=== PATIENT | female | born 1960 | race Caucasian/White ===

== ENCOUNTER 2020-06-23 08:12 | Outpatient (CLI) | payer BC, SELFPAY ==
--- NOTE | ~2020-06-23 | MM_ITS ---
EXAMINATION: MM screening [facility] BI w madiha HISTORY: Screening mammogram TECHNIQUE: Craniocaudal and mediolateral oblique 3-D tomosynthesis images were obtained and synthetic 2-D images were generated. CAD analysis was submitted and interpreted. COMPARISON: 05/27/2019, 05/23/2018, 05/08/2017 and lateral digital screening mammogram examinations BREAST PARENCHYMAL COMPOSITION: There are scattered areas of fibroglandular density. FINDINGS: There is no evidence of suspicious mass, calcification, or architectural distortion to sugg est malignancy in either breast. There has been no suspicious interval change. IMPRESSION: 1. No mammographic evidence of malignancy. 2. Recommend routine screening mammography in one year. BI-RADS Category 1: Negative Reviewed, dictated and finalized at location A. 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
== END 2020-06-23 08:13 | disposition home or self-care (01) ==
LOC: ANHIMG 08:17
PROVIDERS: Visit Provider Family Medicine
DX: Z12.31 Encounter for screening mammogram for malignant neoplasm of breast (principal)
CPT/HCPCS: 77063; 77067

== ENCOUNTER → 2020-12-28 00:17 | Outpatient (CLI) | payer BC, SELFPAY ==
[2020-12-28 21:52] LABS: SARS-CoV-2 RNA PCR Negative
== END ==
PROVIDERS: Visit Provider Internal Medicine Gastroenterology
DX: Z01.812 Encounter for preprocedural laboratory examination (principal); Z20.822 Contact with and (suspected) exposure to COVID-19
CPT/HCPCS: C9803; U0003; U0005

== ENCOUNTER 2020-12-31 02:33 | Day surgery (SDC) | payer BC, SELFPAY ==
[2020-12-23 09:25] VITALS: BMI 37.2
[2020-12-31 07:00] VITALS: BP 141/80; PULSE 89; RESP 18; TEMP 36.5; O2SAT 96; BMI 37.5
[2020-12-31] MEDS: LACTATED RINGERS 1,000 ML 150 ML IV CONT (07:10)
--- NOTE | 2020-12-31 07:17 | P.HP_ITS ---
History of Present Illness History of Present Illness Consent: Risks, benefits, and alternatives have been discussed and questions answered. Patient agrees to proceed with procedure. Chief complaint: hx of colon polyps Narrative: Flora Marino is a 60 year old female here for colon cancer screening Review of Systems Review of Systems: All systems reviewed & are unremarkable except as noted in HPI and below [facility] Social History Social History Smoking status: Never smoker Alcohol intake: current Substance use: never Substance use type: does not use Living arrangements: with family Spiritual care concerns: No Meds Home Medications and Allergies Home Medications Medication Instructions Recorded Confirmed Type No Home Medications 12/23/20 12/31/20 History Allergies Allergy/AdvReac Type Severity Reaction Status Date / Time No Known Allergies Allergy Verified 12/31/20 06:38 Vital Signs Vital Signs - 24 hr 12/31/20 07:00 Temperature 36.5 C Pulse Rate 89 Respiratory Rate 18 Blood Pressure 141/80 H Pulse Oximetry 96 Exam Const: General: alert Orientation/consciousness: patient oriented x3 Resp: Auscultation: clear to auscultation bilaterally Cardio: Rhythm: regular rhythm GI: GI Palp: Yes Soft to palpation and No Tenderness to palpation present (GI) Neuro: General: patient oriented x3 Assessment and Plan Assessment and plan (1) Colon cancer screening: Code(s): Z12.11 - Encounter for screening for malignant neoplasm of colon Status: Acute Assessment and Plan: Colonoscopy with possible biopsy or polypectomy or cautery or injection of substances.
--- NOTE | 2020-12-31 07:31 | WPDANESEPPF ---
Anes - Initial Pre Proc Eval Procedure: Operation Date: 12/31/20 08:00 Proposed Procedures p Screening Colonoscopy - Satish Love MD Date/Time: 12/31/20 07:31 Surgeon: Satish Love MD Pre Op Diagnosis: hx of colon polyps Patient Data Age: 60 Gender: F Height: 5 ft 10 in Weight: 118.9 kg Last Vital Signs Temp 97.7 F 12/31/20 07:00 Pulse 89 12/31/20 07:00 Resp 18 12/31/20 07:00 BP 141/80 H 12/31/20 07:00 Pulse Ox 96 12/31/20 07:00 Allergies Allergy/AdvReac Type Severity Reaction Status Date / Time No Known Allergies Allergy Verified 12/31/20 06:38 Home Medications Medication Instructions Recorded Confirmed Type No Home Medications 12/23/20 12/31/20 History Patient hx anesthesia problems: none Family hx anesthesia problems: none PMF Past Medical History Medical History (Updated 12/31/20 @ 07:30 by Casey Louie MD) Elevated liver enzymes no problems since gallbladder removed Social History Social History Smoking status: Never smoker Alcohol intake: current Substance use: never Substance use type: does not use Living arrangements: with family Spiritual care concerns: No Anes - Eval Final PreProcedure Day of Procedure 12/31/20 07:31 Patient weight: obese Heart: regular rate and rhythm Lungs: clear to auscultation Airway: Mallampati scale class II Neurological: alert and oriented Last oral intake: >/= 8 hours ASA classification: III Emergent: no Anesthetic plan: proceed Anesthesia type and monitoring: general GIVS and standard monitoring Informed Consent: The patient's anesthetic plan and its attendant risks and benefits were discussed with the patient/family/POA. Questions were solicited and answers provided to the satisfaction of the patient/family/POA.
[2020-12-31 08:12] VITALS: BP 113/64; PULSE 78; RESP 23; O2SAT 98
[2020-12-31 08:22] VITALS: BP 123/77; PULSE 77; RESP 26; O2SAT 97
[2020-12-31 08:32] VITALS: BP 123/81; PULSE 71; RESP 22; O2SAT 97
== END 2020-12-31 08:45 | disposition home or self-care (01) ==
PROVIDERS: Visit Provider Internal Medicine Gastroenterology
PROC: 0DJD8ZZ Inspection of Lower Intestinal Tract, Via Natural or Artificial Opening Endoscopic (ICD-10-PCS; CPT 45378; principal; 2020-12-31 08:00)
DX: Z12.11 Encounter for screening for malignant neoplasm of colon (principal); D12.5 Benign neoplasm of sigmoid colon; K62.1 Rectal polyp; E66.9 Obesity, unspecified; Z68.37 Body mass index [BMI] 37.0-37.9, adult
CPT/HCPCS: 45385; 88305; C9803; J2001; J2704; J7120; U0003; U0005

== ENCOUNTER 2021-08-30 09:18 | Outpatient (CLI) | payer BC, SELFPAY ==
--- NOTE | ~2021-08-30 | MM_ITS ---
EXAMINATION: MM screening [facility] BI w madiha HISTORY: Screening TECHNIQUE: Craniocaudal and mediolateral oblique 3-D tomosynthesis images were obtained and synthetic 2-D images were generated. CAD analysis was submitted and interpreted. COMPARISON: Comparison to multiple prior studies sequentially, with oldest reviewed study dated 04/20. BREAST PARENCHYMAL COMPOSITION: There are scattered areas of fibroglandular density. FINDINGS: There is no evidence of suspicious mass, calcification, or architectural distortion to sugg est malignancy in either breast. There has been no suspicious interval change. IMPRESSION: 1. No mammographic evidence of malignancy. 2. Recommend routine screening mammography in one year. BI-RADS Category 1: Negative Reviewed, dictated and finalized at location A. 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
== END 2021-08-30 09:19 | disposition home or self-care (01) ==
LOC: ANHIMG 09:20
PROVIDERS: Visit Provider Family Medicine
DX: Z12.31 Encounter for screening mammogram for malignant neoplasm of breast (principal)
CPT/HCPCS: 77063; 77067

== ENCOUNTER 2022-08-31 09:49 | Outpatient (CLI) | payer BC, SELFPAY ==
--- NOTE | ~2022-08-31 | MM_ITS ---
EXAMINATION: MM screening [facility] BI w madiha HISTORY: Screening mammogram TECHNIQUE: Craniocaudal and mediolateral oblique 3-D tomosynthesis images were obtained and synthetic 2-D images were generated. Cleavage view. CAD analysis was submitted and interpreted. COMPARISON: , 06/23/2020, 05/2019 bilateral screening mammogram examinations BREAST PARENCHYMAL COMPOSITION: The breasts are almost entirely fatty. FINDINGS: There is no evidence of suspicious mass, calcification, or architectural distortion to sugg est malignancy in either breast. There has been no suspicious interval change. IMPRESSION: 1. No mammographic evidence of malignancy. 2. Recommend routine screening mammography in one year. BI-RADS Category 1: Negative Reviewed, dictated and finalized at location A. 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
== END 2022-08-31 09:50 | disposition home or self-care (01) ==
LOC: ANHIMG 09:52
PROVIDERS: Visit Provider Family Medicine
DX: Z12.31 Encounter for screening mammogram for malignant neoplasm of breast (principal)
CPT/HCPCS: 77063; 77067

== ENCOUNTER 2023-10-06 07:45 | Outpatient (CLI) | payer BC, SELFPAY ==
--- NOTE | ~2023-10-06 | MM_ITS ---
Patient name: Flora Marino Date of : 1960 MM diagnostic mammo BI DATE: 10/06/2023 INDICATION: Screening TECHNIQUE: Digital MLO and CC views 3-D Tomosynthesis images with degeneration of 2-D. Computer aided detection was performed and reviewed. COMPARISON: August 31, 2022, August 30, 2021 bilateral screening mammogram examinations DENSITY: The breasts are almost entirely fatty FINDINGS: No suspicious mass or architectural distortion, malignant calcification, skin thickening or retractio n or significant new or developing density is detected. IMPRESSIONS: BIRADS Category 1: Negative No significant change since August 2022 and August 30, 2021 RECOMMENDATIONS: Routine annual mammographic screening Reviewed, dictated and finalized at [facility]. Reviewed, dictated and finalized at location A. IMPRESSIONS: BIRADS Category 1: Negative No significant change since August 2022 and August 30, 2021 RECOMMENDATIONS: Routine annual mammographic screening
== END 2023-10-06 07:46 | disposition home or self-care (01) ==
LOC: ANHIMG 07:51
PROVIDERS: PCP Family Medicine; Visit Provider Family Medicine
DX: Z12.31 Encounter for screening mammogram for malignant neoplasm of breast (principal)
CPT/HCPCS: 77063; 77067